=== PATIENT | female | born 1995 | race Caucasian/White ===

== ENCOUNTER 2019-09-12 14:55 | Outpatient (CLI) | payer OTHER, SELFPAY ==
--- NOTE | ~2019-09-12 | XR_ITS ---
XR wrist LT min 3V DATE: 09/12/2019 15:23 INDICATION: Left wrist pain TECHNIQUE: 4 views COMPARISON: None FINDINGS: No fracture or dislocation, periosteal reaction or bone destruction. Joint spaces are prese rved. No erosive change or chondrocalcinosis. IMPRESSION: Negative Reviewed, dictated and finalized at location B. IMPRESSION: Negative
== END 2019-09-12 14:56 | disposition home or self-care (01) ==
LOC: CHSIMG 14:59
PROVIDERS: PCP Family Medicine; Visit Provider Family Medicine
DX: M25.532 Pain in left wrist (principal)
CPT/HCPCS: 73110

== ENCOUNTER 2020-08-19 08:25 | Emergency (ER) | payer OTHER, SELFPAY ==
[2020-08-19 08:30] VITALS: BP 145/90; PULSE 96; RESP 16; TEMP 36.7; O2SAT 100
--- NOTE | 2020-08-19 09:00 | ED.URI ---
HPI - URI/Sore Throat General Chief Complaint: Upper Respiratory Infection Stated Complaint: SORE THROAT Time Seen by Provider: 08/19/20 08:35 Source: patient and RN notes reviewed Mode of arrival: ambulatory Limitations: no limitations History of Present Illness HPI Narrative: Mild sore throat x 2 days. no fever. right ear congestion. MD elicited complaint: sore throat Onset (ago): day(s) Consistency: constant Severity: mild Pain scale (0-10): 3 Able to tolerate fluids by mouth: Yes Exacerbating factors: nothing Relieving factors: nothing Associated symptoms: sore throat Treatments prior to arrival: none Related Data Allergies Allergy/AdvReac Type Severity Reaction Status Date / Time Penicillins Allergy Intermediate Unknown Verified 08/19/20 08:55 sulfite Allergy Intermediate Unknown Verified 08/19/20 08:55 Sulfa (Sulfonamide Allergy Unknown Verified 08/19/20 08:55 Antibiotics) Review of Systems Review of Systems: All systems reviewed & are unremarkable except as noted in HPI and below Constitutional: Constitutional: Reports no additional constitutional complaints Eyes: Eyes: Reports no additional eye complaints ENT: Reports sore throat Cardiovascular: Cardiovascular: Reports no additional cardiovascular complaints Respiratory: Respiratory: Reports no additional respiratory complaints Gastrointestinal: Gastrointestinal: Reports no additional gastrointestinal complaints Genitourinary: Comments: on menses now. Musculoskeletal: Musculoskeletal: Reports no additional musculoskeletal complaints Neurologic: Reports system reviewed and no additional complaints, except as documented Psychiatric: Psychiatric: Reports no additional psychiatric complaints Endocrine: Endocrine: Reports no additional endocrine complaints Hematologic/Lymphatic: Hematologic/Lymphatic: Reports no additional hematologic/lymphatic complaints Allergic/Immunologic: Allergic/Immunologic: Reports no additional allergic/immunologic complaints PMFSH Past Medical History Medical History Hx of nasal polyp Nasal polyp, benign Social History Social History Smoking status: Never smoker Exam Const: General: no acute distress and alert Nutritional Appearance: well nourished Orientation/consciousness: patient oriented x3 HENMT: Ears: TM abnormal (mild right TM dullness) Throat: posterior oropharynx normal (mild tonsillar swelling with exudates.) Eyes: Conjunctivae: conjunctivae normal Pupils: Equal, round and reactive pupils present EOM: EOMs intact bilaterally Neck: Neck: normal visual inspection and no lymphadenopathy Other: supple neck Chest: Chest palpation & inspection: normal inspection of the chest Resp: Effort & Inspection: normal respiratory effort Auscultation: clear to auscultation bilaterally Cardio: Rate: regular rate Rhythm: regular rhythm GI: GI Palp: Yes Soft to palpation Percussion: Yes normal to percussion and Yes other (non-tender) Auscultation: normal bowel sounds : General: Yes no CVA tenderness Back/Spine/Pelvis: Back: no CVA tenderness Skin: General skin exam: normal color Rashes: no rashes Neuro: General: patient oriented x3, moves all extremities and no focal motor deficits Extrem: General: normal to inspection and no clubbing, cyanosis or edema Psych: Appearance: grossly normal and well kempt Mental Status: mental status grossly normal Affect: normal affect Attitude: cooperative Thought content: Yes Normal thought content present Course Course Emergency Course: pt was stable in the ED. her pain and congestion were less after tx. will send home with Rx. Reevaluation(s) Date: 08/19/20 Time: 09:46 Vital Signs Vital signs: Vital Signs Temperature 36.7 C 08/19/20 08:30 Pulse Rate 96 08/19/20 08:30 Respiratory Rate 16 08/19/20 08:30 Blood Pressure 14
[2020-08-19] MEDS: ACETAMINOPHEN 325 MG TABLET 650 MG PO (09:13)
[2020-08-19] MEDS: guaiFENesin/DEXTROMETHORPHAN 5 ML UDC 10 ML PO (09:14)
[2020-08-19 09:55] VITALS: BP 143/100; PULSE 90; RESP 14; O2SAT 100
== END 2020-08-19 10:00 | disposition home or self-care (01) ==
PROVIDERS: Emergency Provider Emergency Medicine; PCP Family Medicine
DX: J02.9 Acute pharyngitis, unspecified (principal)
CPT/HCPCS: 87081; 87880; 99283; A9270

== ENCOUNTER 2020-09-24 14:10 | Outpatient (CLI) | payer OTHER, SELFPAY ==
[2020-09-24 15:59] LABS: SARS-CoV-2 RNA PCR Negative (Negative)
== END 2020-09-24 14:11 | disposition home or self-care (01) ==
PROVIDERS: PCP Family Medicine; Visit Provider Family Medicine
DX: J02.9 Acute pharyngitis, unspecified (principal); Z72.51 High risk heterosexual behavior; Z20.822 Contact with and (suspected) exposure to COVID-19
CPT/HCPCS: 87081; 87880; C9803; U0003; U0005

== ENCOUNTER 2020-09-25 10:24 | Outpatient (NON) | payer OTHER, SELFPAY | END 2020-09-25 10:25 | disposition home or self-care (01) | LOC: CHSLAB 10:26 | PROVIDERS: Visit Provider Family Medicine | DX: Z72.51 High risk heterosexual behavior (principal) | CPT/HCPCS: 87491; 87591; 87661 ==